=== PATIENT | female | born 1960 | race African-American/Black ===

== ENCOUNTER → 2017-04-22 08:07 | Outpatient (CLI) | payer OTHER ==
--- NOTE | ~2017-04-22 | EMG ---
PATIENT:JOSE L HUSTON DATE OF SERVICE: 04/22/17 MEDICAL RECORD: [id number] DATE OF : 56 LOCATION: [facility] ADMISSION DATE: REFERRING PHYSICIAN: JUDAH CHENG INTERPRETING PHYSICIAN: DEEJAY LUNDY MD DATE OF SERVICE: 04/22/2017 REFERRED BY: Dr. Judah Cheng in [place] as an outpatient. DATE OF EXAMINATION: 04/22/2017. ELECTROMYOGRAPHIC DATA: Electromyographic examination is limited to both lower extremities. In the right lower extremity, right peroneal motor stimulation elicits no reliable response. Right tibial motor stimulation elicits a compound motor action potential with a distal latency of 4.6 milliseconds, peak amplitude of 5 millivolts, and calculated conduction velocity of 35 meters per second. Antidromic right sural sensory stimulation elicits a response with a distal latency of 3.6 milliseconds, amplitude of 12 microvolts and calculated conduction velocity of 32 meters per second. The right lower extremity H reflex recording at gastrocsoleus has a latency of 32 milliseconds. In the left lower extremity, left peroneal motor stimulation elicits a compound motor action potential with a distal latency of 5.9 milliseconds, peak amplitude of 5 millivolts, and calculated conduction velocity of 49 meters per second. Left tibial motor stimulation elicits a compound motor action potential with a distal latency of 4.4 milliseconds, peak amplitude of 5 millivolts, and calculated conduction velocity of 43 meters per second. Antidromic left sural sensory stimulation elicits a response with a distal latency of 3.7 milliseconds, amplitude of 11 microvolts and calculated conduction velocity of 32 meters per second. The left lower extremity H reflex recording at gastrocsoleus has a latency of 32 milliseconds. Needle electrode examination is limited to both lower extremities as well. Muscles interrogated include the abductor hallucis, extensor digitorum brevis, abductor digiti quinti, tibialis anterior, medial gastrocnemius, vastus lateralis, semitendinosis and gluteus mel. There is no abnormality of insertional activity and no abnormal spontaneous activity is seen in all muscles interrogated. Motor unit potential morphology and the pattern of motor unit potential firing and recruitment is normal in all muscles sampled. INTERPRETATION: Electromyographic examination of both lower extremities is indicative of a diffuse disorder of the lower motor neuron in both lower extremities, mild to moderate in degree electrically, consistent with the diagnosis of a sensory motor peripheral polyneuropathy. This is evidenced by slowing of conduction along sural sensory fibers bilaterally as well as prolongation of the H reflexes. In addition, however, there is evidence of a more diffuse focal disorder in the right lower extremity across multiple nerve roots and peripheral nerve distributions more consistent with a lumbosacral plexopathy in this limb. There is no evidence of active denervation on needle electrode examination to help in further localization. TRANSINT:[id number] Voice Confirmation ID: [id number] DOCUMENT ID: [id number] ELECTROMYGRAM/NERVE CONDUCTION [id number] JOSE L HUSTON DONALD P MD CC: [id number] DICTATION DATE: 04/24/17 0650 [employer]TLEC[employer] ASSEM[employer]ER: 04/24/17 2259 DEP CLI 04/22/17 [id number] [place] [address]
== END | disposition home or self-care (01) ==
LOC: D.CN 04-18 09:00
DX: G60.9 Hereditary and idiopathic neuropathy, unspecified (principal); M54.31 Sciatica, right side